=== PATIENT | male | born 1985 | race Caucasian/White ===

== ENCOUNTER 2023-02-27 19:27 | Emergency (ER) | payer SELFPAY ==
[2023-02-27 19:37] VITALS: RESP 18; BMI 30.4
[2023-02-27] MEDS ORDERED: DEXAMETHASONE SOD PHOSPHATE 10 MG/1 ML VIAL IVPUSH ONE (20:18)
[2023-02-27] MEDS ORDERED: valACYclovir HCL 500 MG TABLET (FP) PO ONE (20:18)
[2023-02-27] MEDS ORDERED: DOXYCYCLINE HYCLATE 100 MG CAPSULE PO ONE ×2 (20:18→20:32)
[2023-02-27] MEDS ORDERED: SODIUM CHLORIDE 0.9% 500 ML INFUS.BAG IV ONE (20:18)
[2023-02-27] MEDS ORDERED: DEXAMETHASONE SOD PHOSPHATE 10 MG/1 ML VIAL ONE (20:32)
[2023-02-27] MEDS ORDERED: valACYclovir HCL 500 MG TABLET (FP) ONE (20:32)
[2023-02-27 20:44] LABS: EOS % 2.7 % (0-4.5); HEMOGLOBIN 15.5 GM/dL (11.7-16.9); LYMPH % 24.5 % (8-40); MCH 29.4 pg (25.7-33.7); MCHC 34.5 g/dl (32.0-35.9); MEAN CELL VOLUME 85.2 fl (80-96); MEAN PLT VOLUME 10.5 fl (7.5-11.1); MONO % 5.1 % (3.8-10.2); NEUT % 66.7 % (42.8-82.8); PLATELET COUNT 207 10^3/uL (134-434); RBC 5.28 M/mm3 (4.00-5.60); RDW 13.8 % (11.9-15.9); WHITE BLOOD COUNT 10.3 K/mm3 (4.0-10.0)
[2023-02-27 20:48] LABS: VENOUS BASE EXCESS -0.9 mmol/L (-2-2); VENOUS O2 SATURATION 34.1 % (70-80); VENOUS PCO2 48.2 mmHg (38-52); VENOUS PH 7.341 (7.310-7.410)
[2023-02-27 21:08] LABS: POTASSIUM 4.6 mmol/L (3.5-5.1)
[2023-02-27 21:10] LABS: CALCIUM 8.9 mg/dL (8.5-10.1)
[2023-02-27 21:11] LABS: ALBUMIN 3.9 g/dl (3.4-5.0)
[2023-02-27 21:14] LABS: CREATININE 0.9 mg/dL (0.55-1.3)
[2023-02-27 21:15] LABS: BILIRUBIN,TOTAL 0.5 mg/dL (0.2-1)
[2023-02-27 21:34] LABS: BLOOD UREA NITROGEN 15.9 mg/dL (7-18)
[2023-02-27] MEDS ORDERED: INSULIN REGULAR HUMAN 100 UNITS/ML *VIAL SQ ONE (22:09)
[2023-02-27 22:34] VITALS: BP 115/72; PULSE 75; TEMP 98.2
== END 2023-02-28 00:18 | disposition home or self-care (01) ==
LOC: JER 19:27
PROC: 3E033GC Introduction of Other Therapeutic Substance into Peripheral Vein, Percutaneous Approach (ICD-10-PCS; principal; 2023-02-27)
PROC: 3E013VG Introduction of Insulin into Subcutaneous Tissue, Percutaneous Approach (ICD-10-PCS; 2023-02-27)
DX: R20.2 Paresthesia of skin (principal); G51.0 Bell's palsy; H04.2 Epiphora
CPT/HCPCS: 36415; 80053; 82803; 82962; 85025; 86618; 99284-25; J1100